=== PATIENT | female | born 2000 | race Caucasian/White ===

== ENCOUNTER 2019-03-02 00:07 | Emergency (ER) | payer BC ==
[~2019-03-02] VITALS: Ht 172.7 cm; Wt 59.0 kg
[2019-03-02] MEDS ORDERED: PRED-220 PO (00:27)
[2019-03-02] MEDS ORDERED: DEXAMETHASONE SOD PHOS 4 MG/ML VIAL IM ONE (00:30)
[2019-03-02 01:05] VITALS: BP 130/82
--- NOTE | 2019-03-02 05:38 | PHYS DOC ---
Past History Past Medical History: No Pertinent History Past Surgical History: No Surgical History Alcohol Use: None Drug Use: None Adult General Chief Complaint Chief Complaint: SKIN RASH/ABSCESS HPI HPI Patient is a 18 yo f p/w rash behind right knee someone told her she might have scabies she works at the [employer] so she wanted to co me in to get checked out. of note she also goes fishing every other weekend and she knows she has been exposed to poison ivelisse she knows she is supposed to wear pants but usually doesnt has tried calamine lotion would like a shot so it goes away faster Review of Systems Review of Systems Constitutional: Denies fever or chills [] Neurologic: Denies headache, focal weakness or sensory changes [] Endocrine: Denies polyuria or polydipsia [] All other systems were reviewed and found to be within normal limits, except as documented in this note. Current Medications Current Medications Current Medications Medications (Trade) Dose Ordered Sig/Jane Start Time Stop Time Status Last Admin Dose Admin Dexamethasone Sodium Phosphate (Decadron) 6 mg 1X ONCE 03/02/19 00:30 03/02/19 00:46 DC 03/02/19 00:44 6 MG Allergies Allergies Allergies Coded Allergies Type Severity Reaction Last Updated Verified No Known Drug Allergies 03/02/19 No Physical Exam Physical Exam Constitutional: Well developed, well nourished, no acute distress, non-toxic appearance. [] HENT: Normocephalic, atraumatic, bilateral external ears normal, oropharynx moist, , nose normal. [] Eyes: PERRLA, EOMI, conjunctiva normal, no discharge. [] Skin: there is a group of raised papules 50 plus in small area approx 4 by 4 in popliteal fossa, not linear no vesicles there is calamine lotoin dried on the area. Extremities: No tenderness, no cyanosis, no clubbing, ROM intact, no edema. [] Neurologic: Alert and oriented X 3, normal motor function, normal sensory function, no focal deficits noted. [] Current Patient Data Vital Signs Vital Signs Date Time Temp Pulse Resp B/P (MAP) Pulse Ox O2 Delivery O2 Flow Rate FiO2 03/02/19 01:05 63 18 130/82 (98) 98 Room Air 03/02/19 00:07 97.7 Lab Results perature (Fahrenheit): * 97.7 degrees F (97.6-99.5) Patient Temperature * 97.7 degrees F (97.5-99.5) Temperature Source * Oral Blood Pressure Systolic * 135 mm Hg (100-140) Blood Pressure Diastolic * 98 mm Hg (60-100) Blood Pressure Mean * 110 mm Hg Blood Pressure Location * Right Arm Blood Pressure Source * Automatic Cuff Pulse Rate * 66 beats per minute (60-90) Pulse Assessment Method * Monitor EKG EKG [] Radiology/Procedures Radiology/Procedures [] Course & Med Decision Making Course & Med Decision Making Pertinent Labs and Imaging studies reviewed. (See chart for details) []probably contact dermatitis only one body part affected, no linear-ly oriented lesions noted. no lesoins in between fingers or axilla try steroid medication, im and po taper provided Dragon Disclaimer Dragon Disclaimer This electronic medical record was generated, in whole or in part, using a voice recognition dictation system. Departure Departure: Impression: Primary Impression: Contact dermatitis Disposition: HOME, SELF-CARE Condition: STABLE Referrals: PCP,NO (PCP) Patient Instructions: Contact Dermatitis, [id number] Scripts Prednisone (PREDNISONE) 10 Mg Tablet 10 MG PO UD for PREDNISONE TAPER, #39 TAB 0 Refills Take 3 tablets by mouth twice a day for 3 days, then take 2 tablets by mouth twice a day for 3 days, then take 1 tablet by mouth twice a day for 3 days, then take 1 tablet by mouth daily x 3 days, then stop. Prov: JACQUELINE JONES MD 03/02/19 JACQUELINE JONES MD Mar 02, 2019 05:38
== END 2019-03-02 01:05 | disposition home or self-care (01) ==
LOC: ER 00:07
DX: L25.9 Unspecified contact dermatitis, unspecified cause (principal)
CPT/HCPCS: 96372; 99283; J1100